=== PATIENT | male | born 1995 | race Caucasian/White ===

== ENCOUNTER 2017-07-26 10:24 | Emergency (ER) | payer OTHER ==
[2017-07-26 10:28] VITALS: BP 136/89; PULSE 97; RESP 16; TEMP 98.1; O2SAT 98
[2017-07-26] MEDS ORDERED: ROBA750T PO (10:51)
[2017-07-26] MEDS ORDERED: IBUP1TAB7 PO (10:51)
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
[2017-07-26] MEDS ORDERED: IBUPROFEN 800 MG TAB PO ONE (11:00)
[2017-07-26] MEDS ORDERED: METHOCARBAMOL 500 MG TAB PO ONE (11:00)
== END 2017-07-26 11:12 | disposition home or self-care (01) ==
LOC: NEPK 10:24
DX: S39.012A Strain of muscle, fascia and tendon of lower back, initial encounter (principal); V43.52XA Car driver injured in collision with other type car in traffic accident, initial encounter
CPT/HCPCS: 99283